=== PATIENT | female | born 1940 | race Asian ===

== ENCOUNTER 2016-07-03 17:18 | Emergency (ER) | payer MEDICARE, OTHER ==
[~2016-07-03] VITALS: Ht 154.9 cm; Wt 56.7 kg
[~2016-07-03 17:18] MED LIST: GLIPIZIDE5 MG ORAL; GLUCOSAMINE PO; LISINOPRIL20 MG ORAL; LOVASTATIN20 MG ORAL; MECLIZINE HCL25 MG ORAL; NITROFURANTOIN100 M2 ORAL; VITAMIN D1000 UNI1 ORAL
[2016-07-03 18:15] VITALS: BP 133/66
[2016-07-03] MEDS ORDERED: LORazepam Inj 2mg/ml 1ml IM ONE (18:15)
[2016-07-03 18:44] LABS: MEAN CORPUSCULAR HEMOGLOBIN 32.4 PG (27.0-31.0); MEAN CORPUSCULAR VOLUME 95 FL (80-99); MEAN PLATELET VOLUME 8.1 FL (6.5-10.1); PLATELET COUNT 150 K/UL (150-450); RED BLOOD COUNT 3.71 M/UL (4.20-5.40); RED CELL DISTRIBUTION WIDTH 12.1 % (11.6-14.8)
[2016-07-03 18:46] LABS: EOSINOPHILS % (AUTO) 0.1 % (0.0-3.0); LYMPHOCYTES % (AUTO) 8.7 % (20.0-45.0); NEUTROPHILS % (AUTO) 89.8 % (45.0-75.0)
[2016-07-03 18:47] LABS: BASOPHILS % (AUTO) 0.3 % (0.0-2.0)
[2016-07-03 18:57] LABS: ALANINE AMINOTRANSFERASE 14 U/L (3-33); ALBUMIN/GLOBULIN RATIO 1.3 (1.0-2.7); ANION GAP 18 (5-15); ASPARTATE AMINO TRANSFERASE 20 U/L (5-40); CALCIUM 9.9 mg/dL (8.6-10.2); CARBON DIOXIDE 24 mEQ/L (20-30); CHLORIDE 97 mEQ/L (98-107); CREATININE 1.2 mg/dL (0.5-0.9); HEMOLYSIS 5; SODIUM 139 mEQ/L (135-145); TOTAL PROTEIN 7.4 g/dL (6.6-8.7)
[2016-07-03 18:59] LABS: TROPONIN I < 0.30 ng/mL (<=0.30)
[2016-07-03] MEDS ORDERED: ZOFRAN ODT4 MG ORAL (20:01)
[2016-07-03] MEDS ORDERED: ATIVAN0.5 MG ORAL (20:01)
[2016-07-03 20:43] VITALS: BP 128/78
[2016-07-03 20:44] VITALS: BP 128/78
--- NOTE | 2016-07-04 03:27 | Emergency Room Report ---
History of Present Illness General Chief Complaint: Vomiting Source: Patient Present Illness HPI Patient presents with vomiting and vertigo. Weak, unable to eat. Some minimal chest pain with this. Denies pain to RN. No fevers, URI, dyspnea. No palpitations, ear pain, sore throat, rashes, headache. Feels weak as has not been able to eat or tolerate fluids well. H/O vertigo in past. Had CT which was negative many years ago. Diabetic on oral medicine. No dysuria. Allergies: Coded Allergies: No Known Allergies (Unverified , 08/29/13) Patient History Past Medical History: see triage record Social History: Denies: alcohol use, drug use, smoking Social History Narrative - used to work at [employer] Now: No Reviewed Nursing Documentation: PMH: Agreed, PSxH: Agreed Nursing Documentation-PMH Past Medical History: No History, Except For Hx Hypertension: Yes Hx Diabetes: Yes Hx Cancer: No Hx Gastrointestinal Problems: No Hx Neurological Problems: No Review of Systems All Other Systems: negative except mentioned in HPI Physical Exam Vital Signs Date Time Temp Pulse Resp B/P Pulse Ox O2 Delivery O2 Flow Rate FiO2 07/03/16 17:34 97.7 65 16 134/70 100 Room Air Sp02 EP Interpretation: reviewed, normal General Appearance: well appearing, no apparent distress, GCS 15 Head: normocephalic Eyes: bilateral eye EOMI, bilateral eye PERRL, bilateral eye other - arcus ENT: TMs + canals normal, dry mucus membranes Neck: supple Respiratory: lungs clear, normal breath sounds Cardiovascular #1: regular rate, rhythm Cardiovascular #2: 2+ radial (R) Gastrointestinal: normal inspection, normal bowel sounds, non tender, no mass, non-distended Musculoskeletal: back normal, gait/station normal, normal range of motion Neurologic: alert, oriented x3, showroom sales consultant III-XII nml as tested, motor strength/tone normal, DTRs symmetric, sensory intact, cerebellar normal, speech normal Psychiatric: anxious Skin: normal inspection, warm/dry Medical Decision Making Diagnostic Impression: Primary Impression: Vertigo Additional Impression: Vomiting Qualified Codes: R11.2 - Nausea with vomiting, unspecified ER Course Patient with vomiting and vertigo. Ddx: Mnire's, labyrinthitis, viral syndrome amongst others. With chest pain, need EKG. As prior normal CT and non -focal neuro, no CT indicated at this time. Unabel to eat, will obtain labs. Will treat with hydration, zofran and ativan. EKG, CXR and labs unremarkable. Improved with treatment. Patient stable for outpatient observation and treatment. Laboratory Tests Test 07/03/16 18:30 White Blood Count 7.0 K/UL (4.8-10.8) Red Blood Count 3.71 M/UL (4.20-5.40) L Hemoglobin 12.0 G/DL (12.0-16.0) Hematocrit 35.3 % (37.0-47.0) L Mean Corpuscular Volume 95 FL (80-99) Mean Corpuscular Hemoglobin 32.4 PG (27.0-31.0) H Mean Corpuscular Hemoglobin Concent 34.0 G/DL (32.0-36.0) Red Cell Distribution Width 12.1 % (11.6-14.8) Platelet Count 150 K/UL (150-450) Mean Platelet Volume 8.1 FL (6.5-10.1) Neutrophils (%) (Auto) 89.8 % (45.0-75.0) H Lymphocytes (%) (Auto) 8.7 % (20.0-45.0) L Monocytes (%) (Auto) 1.0 % (1.0-10.0) Eosinophils (%) (Auto) 0.1 % (0.0-3.0) Basophils (%) (Auto) 0.3 % (0.0-2.0) Sodium Level 139 mEQ/L (135-145) Potassium Level 4.0 mEQ/L (3.4-4.9) Chloride Level 97 mEQ/L (98-107) L Carbon Dioxide Level 24 mEQ/L (20-30) Anion Gap 18 (5-15) H Blood Urea Nitrogen 33 mg/dL (7-23) H Creatinine 1.2 mg/dL (0.5-0.9) H Estimate Glomerular Filtration Rate mL/min (>60) Glucose Level 202 mg/dL (74-106) H Calcium Level 9.9 mg/dL (8.6-10.2) Total Bilirubin 0.4 mg/dL (0.0-1.2) Aspartate Amino Transferase (AST) 20 U/L (5-40) Alanine Aminotransferase (ALT) 14 U/L (3-33) Alkaline Phosphatase 49 U/L (35-104) Total Creatine Kinase 69 U/L (26-140) Troponin I < 0.30 ng/mL (<=0.30) Total Protein 7.4 g/dL (6.6-8.7) Albumin 4.2 g/dL (3.5-5.2) Globulin 3.2 g/dL Albumin/Globulin Ratio 1.3 (1.0-2.7) EKG Diagnostic Results Rate: normal Rhythm: NSR ST Segments: no acute changes Rhythm Strip Diag. Results EP Interpretation: yes Rhythm: NSR, no PVC's, no ectopy Chest X-Ray Diagnostic Results EP Interpretation: Yes Findings: no consolidation, no effusion, no pneumothorax, no acute cardiopulmonary disease Number of Views: 1 Last Vital Signs Date Time Temp Pulse Resp B/P Pulse Ox O2 Delivery O2 Flow Rate FiO2 07/03/16 20:44 97.7 75 18 128/78 98 Room Air Status: improved Disposition: HOME, SELF-CARE Condition: Improved Scripts Ondansetron Odt* (ZOFRAN ODT*) 4 Mg Tab.rapdis 4 MG ORAL Q8H Y for Nausea & Vomiting, #10 TAB 0 Refills Prov: Elvis Dickens M.D. 07/03/16 Lorazepam* (ATIVAN*) 0.5 Mg Tablet 0.5 MG ORAL THREE TIMES A DAY Y for vertigo and nausea, #10 TAB Prov: Elvis Dickens M.D. 07/03/16 Referrals: NON PHYSICIAN (PCP) Patient Instructions: Nausea and Vomiting, Adult, Vertigo Additional Instructions: See your doctor soon. Return if you are not doing well. Elvis Dickens M.D. Jul 04, 2016 03:27
--- NOTE | 2016-07-04 11:53 | Diagnostic Imaging Report ---
Indication: DIZZY Technique: One view of the chest Comparison: none Findings: Lungs and pleural spaces are clear. Calcifications are seen in the left lung base. The heart is upper limits normal in size. Aorta is elongated and tortuous Impression: No acute process
--- NOTE | 2016-07-04 19:48 | Cardiology Report ---
APPROVED REPORT EKG Measurement Heart [id number] Normal sinus rhythm Normal ECG
== END 2016-07-03 20:48 | disposition home or self-care (01) ==
LOC: EMR 18:08
DX: R42 Dizziness and giddiness (principal); I10 Essential (primary) hypertension; E11.9 Type 2 diabetes mellitus without complications; R11.10 Vomiting, unspecified
CPT/HCPCS: 36415; 71010; 80053; 82550; 82962; 84484; 85025; 93005; 96372; 96374; 96375; 99284; J2405

== ENCOUNTER 2018-02-04 17:38 | Emergency (ER) | payer MEDICAID, MEDICARE, OTHER ==
[~2018-02-04] VITALS: Ht 157.5 cm; Wt 54.4 kg
[~2018-02-04 17:38] MED LIST changes: +ATIVAN0.5 MG ORAL; +ZOFRAN ODT4 MG ORAL
[2018-02-04] MEDS ORDERED: Morphine Sulfate 4mg/ml Inj (IV/IM USE ONLY) IVP ONE (18:00)
--- NOTE | 2018-02-04 18:00 | Emergency Room Report ---
History of Present Illness General Chief Complaint: Pain Source: Patient Present Illness HPI Patient presents with complaints of right ankle and foot pain patient also reports increased swelling in her calf She reports that yesterday the pain came on suddenly she noticed increased swelling Denies any fall or trauma denies any chest pain or short of breath denies any back or flank pain Denies any vomiting or diarrhea Denies any neuropathy however the pain is 8 out of 10 and sharp sensation Allergies: Coded Allergies: No Known Allergies (Unverified , 08/29/13) Patient History Past Medical History: see triage record Pertinent Family History: none Now: No Reviewed Nursing Documentation: PMH: Agreed; PSxH: Agreed Nursing Documentation-PMH Hx Hypertension: Yes Hx Diabetes: Yes Hx Cancer: No Hx Gastrointestinal Problems: No Hx Neurological Problems: No Review of Systems All Other Systems: negative except mentioned in HPI Physical Exam Vital Signs Date Time Temp Pulse Resp B/P (MAP) Pulse Ox O2 Delivery O2 Flow Rate FiO2 02/04/18 17:43 99.0 88 19 148/79 95 Room Air 99.0 Sp02 EP Interpretation: reviewed, normal General Appearance: well appearing Head: normocephalic, atraumatic Eyes: bilateral eye PERRL, bilateral eye EOMI ENT: normal pharynx Neck: full range of motion, supple Respiratory: lungs clear Cardiovascular #1: regular rate, rhythm Gastrointestinal: normal bowel sounds, non tender Musculoskeletal: other - Significant varus deformity to the right foot also edema noted to the calf itself neurovascularly intact, Neurologic: alert, oriented x3, responsive Skin: other - As above Lymphatic: no adenopathy Medical Decision Making Diagnostic Impression: Primary Impression: Valgus deformity of foot Additional Impressions: Arthralgia Swelling ER Course Given the patient's history exam and presentation multiple differentials considered, including but not limited to DVT, septic joint, gout other arthralgia Patient's blood work is appropriate ultrasound was negative for DVT X-ray imaging does not show any acute fractures Give us some of the mild swelling and the location of this area I did feel patient would benefit from inpatient admission and specialty consultation further evaluation of possible septic joint However the patient reports that she does not want to be in the hospital at this time will follow closely and otherwise will return with any change or concern Labs Test 02/04/18 18:04 White Blood Count 9.9 K/UL (4.8-10.8) Red Blood Count 3.44 M/UL (4.20-5.40) Hemoglobin 11.3 G/DL (12.0-16.0) Hematocrit 32.1 % (37.0-47.0) Mean Corpuscular Volume 93 FL (80-99) Mean Corpuscular Hemoglobin 32.9 PG (27.0-31.0) Mean Corpuscular Hemoglobin Concent 35.2 G/DL (32.0-36.0) Red Cell Distribution Width 11.3 % (11.6-14.8) Platelet Count 174 K/UL (150-450) Mean Platelet Volume 6.4 FL (6.5-10.1) Neutrophils (%) (Auto) 72.5 % (45.0-75.0) Lymphocytes (%) (Auto) 19.5 % (20.0-45.0) Monocytes (%) (Auto) 7.1 % (1.0-10.0) Eosinophils (%) (Auto) 0.1 % (0.0-3.0) Basophils (%) (Auto) 0.8 % (0.0-2.0) Sodium Level 136 MMOL/L (136-145) Potassium Level 3.6 MMOL/L (3.5-5.1) Chloride Level 101 MMOL/L (98-107) Carbon Dioxide Level 27 MMOL/L (21-32) Anion Gap 8 mmol/L (5-15) Blood Urea Nitrogen 27 mg/dL (7-18) Creatinine 1.1 MG/DL (0.55-1.30) Estimat Glomerular Filtration Rate mL/min (>60) Glucose Level 148 MG/DL (74-106) Calcium Level 9.0 MG/DL (8.5-10.1) Total Bilirubin 0.5 MG/DL (0.2-1.0) Aspartate Amino Transf (AST/SGOT) 18 U/L (15-37) Alanine Aminotransferase (ALT/SGPT) 17 U/L (12-78) Alkaline Phosphatase 51 U/L (46-116) Total Creatine Kinase 115 U/L (26-308) Creatine Kinase MB < 0.5 NG/ML (0.0-3.6) Creatine Kinase MB Relative Index 0.4 Troponin I 0.000 ng/mL (0.000-0.056) Total Protein 7.6 G/DL (6.4-8.2) Albumin 3.2 G/DL (3.4-5.0) Globulin 4.4 g/dL Albumin/Globulin Ratio 0.7 (1.0-2.7) Rhythm Strip Diag. Results EP Interpretation: yes Rate: 67 Rhythm: NSR, no PVC's, no ectopy Other X-Ray Diagnostic Results Other X-Ray Diagnostic Results #1: X-Ray ordered: Right ankle # of Views/Limited Vs Complete: 3 View Indication: Pain EP Interpretation: Yes Interpretation: no dislocation, no fractures, other - sts Impression: Other - sts Electronically Signed by: Carla Shaikh DO Other X-Ray Diagnostic Results #2: X-Ray ordered: Right foot # of Views/Limited Vs Complete: 3 View Indication: Pain EP Interpretation: Yes Interpretation: no dislocation, no fractures, other - sts Impression: Other - sts Electronically Signed by: Carla Shaikh DO CT/MRI/US Diagnostic Results CT/MRI/US Diagnostic Results : Impression venous ultrasound: no acute disease Last Vital Signs Date Time Temp Pulse Resp B/P (MAP) Pulse Ox O2 Delivery O2 Flow Rate FiO2 02/04/18 17:43 99.0 88 19 148/79 95 Room Air 99.0 Status: improved Disposition: HOME, SELF-CARE Condition: Improved Scripts Acetaminophen (Tylenol) 325 Mg Tablet 650 MG ORAL Q8HR PRN for Prn Pain/Headache/Temp > 101, #15 TAB 0 Refills Prov: Carla Shaikh DO 02/04/18 Indomethacin (Indomethacin) 50 Mg Capsule 25 MG ORAL Q8H, #15 CAP 0 Refills Prov: Carla Shaikh DO 02/04/18 Additional Instructions: Patient is provided with the discharge instructions notified to follow up with primary doctor in the next 2-3 days otherwise return to the er with any worsening symptoms. Please note that this report is being documented using [employer] technology. This can lead to erroneous entry secondary to incorrect interpretation by the dictating instrument. Carla Shaikh DO Feb 04, 2018 18:00
[2018-02-04 18:11] VITALS: BP 136/58
[2018-02-04 18:18] LABS: BASOPHILS % (AUTO) 0.8 % (0.0-2.0); EOSINOPHILS % (AUTO) 0.1 % (0.0-3.0); HEMATOCRIT 32.1 % (37.0-47.0); HEMOGLOBIN 11.3 G/DL (12.0-16.0); LYMPHOCYTES % (AUTO) 19.5 % (20.0-45.0); MEAN CORPUSCULAR VOLUME 93 FL (80-99); MONOCYTES % (AUTO) 7.1 % (1.0-10.0); NEUTROPHILS % (AUTO) 72.5 % (45.0-75.0); PLATELET COUNT 174 K/UL (150-450); RED BLOOD COUNT 3.44 M/UL (4.20-5.40); RED CELL DISTRIBUTION WIDTH 11.3 % (11.6-14.8); WHITE BLOOD COUNT 9.9 K/UL (4.8-10.8)
[2018-02-04 18:28] LABS: ANION GAP 8 mmol/L (5-15); BLOOD UREA NITROGEN 27 mg/dL (7-18); CARBON DIOXIDE 27 MMOL/L (21-32); CHLORIDE 101 MMOL/L (98-107); CREATININE 1.1 MG/DL (0.55-1.30); POTASSIUM 3.6 MMOL/L (3.5-5.1); SODIUM 136 MMOL/L (136-145)
[2018-02-04 18:43] LABS: ALANINE AMINOTRANSFERASE 17 U/L (12-78); ALBUMIN 3.2 G/DL (3.4-5.0); ALBUMIN/GLOBULIN RATIO 0.7 (1.0-2.7); ALKALINE PHOSPHATASE 51 U/L (46-116); ASPARTATE AMINO TRANSFERASE 18 U/L (15-37); BILIRUBIN,TOTAL 0.5 MG/DL (0.2-1.0); CKMB < 0.5 NG/ML (0.0-3.6); CREATINE KINASE 115 U/L (26-308)
[2018-02-04] MEDS ORDERED: TYLENOL325 MG ORAL (20:08)
[2018-02-04] MEDS ORDERED: INDOCIN25 MG ORAL (20:08)
[2018-02-04 20:24] VITALS: BP 131/60
--- NOTE | 2018-02-05 08:33 | Diagnostic Imaging Report ---
Indication: Right lower extremity pain and swelling. Technique: Duplex Doppler imaging performed from the right common femoral vein to the popliteal vein. FINDINGS: Normal compressibility demonstrated from the right common femoral vein to the popliteal vein. Respiratory phasicity and good augmentation demonstrated on waveform analysis. There is no evidence of thrombosis. IMPRESSION: No evidence of deep venous thrombosis within the right lower extremity.
--- NOTE | 2018-02-05 10:15 | Diagnostic Imaging Report ---
Indication: Foot Pain Comparison: None Findings: 3 views of the right foot were obtained. There is a moderate hallux valgus deformity with a prominent bunion. No fracture or malalignment identified. Soft tissue swelling is noted in the dorsal aspect of the foot. IMPRESSION: No acute injury appreciated. Other findings as above
--- NOTE | 2018-02-05 10:17 | Diagnostic Imaging Report ---
Indication: Pain right ankle ankle pain/trauma Comparison: None Findings: 3 views of the right ankle obtained. No acute fracture, malalignment, periostitis, or osteochondral defects are identified. Soft tissue swelling is present nonspecific in nature.. Impression: Soft tissue swelling
--- NOTE | 2018-02-07 08:50 | Cardiology Report ---
APPROVED REPORT EKG Measurement Heart [id number] Normal sinus rhythm Normal ECG
== END 2018-02-04 20:20 | disposition home or self-care (01) ==
LOC: EMR 18:50
DX: M21.071 Valgus deformity, not elsewhere classified, right ankle (principal); M79.89 Other specified soft tissue disorders; M25.571 Pain in right ankle and joints of right foot; I10 Essential (primary) hypertension; E11.9 Type 2 diabetes mellitus without complications
CPT/HCPCS: 36415; 73610; 73630; 80053; 82550; 82553; 84484; 85025; 93005; 93971; 96374; 96375; 99284; J2270; J2405

== ENCOUNTER 2018-10-22 14:29 | Emergency (ER) | payer MEDICARE ==
[~2018-10-22] VITALS: Ht 157.5 cm; Wt 54.4 kg
[~2018-10-22 14:29] MED LIST changes: +INDOCIN25 MG ORAL; +TYLENOL325 MG ORAL
[2018-10-22] MEDS ORDERED: UNOBMED (14:42)
--- NOTE | 2018-10-22 14:52 | Emergency Room Report ---
History of Present Illness General Chief Complaint: Pain Source: Patient Present Illness HPI Patient is a 77-year-old female who presented after increased left-sided knee pain. Patient reports having been able to walk earlier in the day. She reports having worsening sharp pain to the left knee worse with bending. She had prior history of osteoarthritis. Patient had not been having any fever. She had felt well this morning. She had previous similar symptoms to her other knee. She denies any recent injury Allergies: Coded Allergies: No Known Allergies (Unverified , 08/29/13) Patient History Past Medical History: see triage record Now: No Reviewed Nursing Documentation: PMH: Agreed; PSxH: Agreed Nursing Documentation-PMH Past Medical History: No History, Except For Hx Hypertension: Yes Hx Diabetes: Yes Hx Cancer: No Hx Gastrointestinal Problems: No Hx Neurological Problems: No Review of Systems All Other Systems: negative except mentioned in HPI Physical Exam Vital Signs Date Time Temp Pulse Resp B/P (MAP) Pulse Ox O2 Delivery O2 Flow Rate FiO2 10/22/18 14:40 98.2 68 16 140/74 (96) 96 Room Air General Appearance: well appearing, no apparent distress, alert, GCS 15, non- toxic Head: normocephalic, atraumatic ENT: hearing grossly normal, normal voice Neck: full range of motion, supple Respiratory: no respiratory distress, speaking full sentences Cardiovascular #1: normal inspection, regular rate, rhythm Musculoskeletal: no calf tenderness, decreased range of mation, other - slight swelling Neurologic: normal gait Psychiatric: mood/affect normal Skin: no rash Medical Decision Making Diagnostic Impression: Primary Impression: Arthropathy of knee ER Course Patient presented for knee pain. Differential diagnosis include was not limited to fracture, contusion, ligamentous injury, septic joint among others. Extremity x-rays was ordered due to patient's advanced age. Patient does not appear to have any evidence of vascular compromise. She has brisk pulses in the dorsalis pedis as well as posterior tibial.Patient was given anti- inflammatory medication as well as medications for pain for her knee.Patient appears to be stable for outpatient management. Last Vital Signs Date Time Temp Pulse Resp B/P (MAP) Pulse Ox O2 Delivery O2 Flow Rate FiO2 10/22/18 14:40 98.2 68 16 140/74 (96) 96 Room Air Status: improved Disposition: HOME, SELF-CARE Condition: Stable Hakan Melara MD Oct 22, 2018 14:52
[2018-10-22] MEDS ORDERED: Ketorolac 60mg Inj IM ONE (15:00)
[2018-10-22] MEDS ORDERED: Morphine Sulfate 2mg/ml Inj(IV/IM USE ONLY) IM ONE (15:00)
[2018-10-22 15:10] VITALS: BP 140/74
--- NOTE | 2018-10-22 15:12 | NUR ---
ED Nurse Note:pt. came from home with c/o left knee pain , no injury reported
[2018-10-22] MEDS ORDERED: VOLTAREN100 G1 TP (15:24)
[2018-10-22 15:47] VITALS: BP 140/74
--- NOTE | 2018-10-22 15:48 | NUR ---
ER DISCHARGE NOTE:yvette wrap placed on left knee Patient is cleared to be discharged per ERMD, pt is aox4, on room air, with stable vital signs. pt was given dc and prescription instructions, pt was able to verbalize understanding, pt is able to ambulate with provided cane. pt took all belongings.
--- NOTE | 2018-10-22 16:12 | Diagnostic Imaging Report ---
Indication: Pain, history of arthritis Technique: 3 views of the left knee Comparison: None Findings: No definite suprapatellar effusion. 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 No acute fractures. No dislocations. The joint spaces are preserved. Impression: No acute process Meniscal chondrocalcinosis incidentally noted
== END 2018-10-22 15:49 | disposition home or self-care (01) ==
LOC: EMR 15:15
DX: M12.9 Arthropathy, unspecified (principal); M11.262 Other chondrocalcinosis, left knee; I10 Essential (primary) hypertension; E11.9 Type 2 diabetes mellitus without complications
CPT/HCPCS: 73562; 96372; 99283; J2270